=== PATIENT | male | born 1980 | race African-American/Black ===

== ENCOUNTER → 2020-12-11 | Outpatient (CLI) | payer MEDICAID | END | disposition home or self-care (01) | LOC: LAB 11:20 | PROVIDERS: ATTEND Ophthalmology | DX: Z01.812 Encounter for preprocedural laboratory examination (principal); Z20.822 Contact with and (suspected) exposure to COVID-19 | CPT/HCPCS: 87426 ==

== ENCOUNTER → 2020-12-13 | Day surgery (SDC) | payer MEDICAID ==
[~2020-12-13] VITALS: Ht 190.5 cm; Wt 122.5 kg
[~2020-12-13] MED LIST: ACET650T37 PO; CIPROFLOXACIN 0.3% OPHTH SOLN 2.5ML LEFTEYE SCH; CROM10DR7 EACHEYE; DIPHENHYDRAMINE 50MG/ML VIAL ONE; FENTANYL CITRATE/PF 50MCG/ML 2ML VIAL ONE; METHYLPREDNISOLONE SOD SUCC 40 MG/ML VIAL ONE; MIDAZOLAM HCL 2 MG/2 ML VIAL ONE; PROPOFOL 200MG/20ML VIAL IV ONE; TOBRAMYCIN/DEXAMETH 0.1/0.3% OPHTH SUSP 2.5ML ONE
[2020-12-13] MEDS: LACTATED RINGERS 1,000 ML IV SCH ×2 (08:31→09:34)
== END | disposition home or self-care (01) ==
LOC: OR 07:39
PROVIDERS: ATTEND Ophthalmology
DX: H11.002 Unspecified pterygium of left eye (principal); Z79.899 Other long term (current) drug therapy; Z98.890 Other specified postprocedural states
CPT/HCPCS: 65420; 88304; J1200; J2250; J2704; J2920; J3010